=== PATIENT | female | born 1980 | race Asian ===

== ENCOUNTER 2017-05-20 15:35 | Emergency (ER) | END 2017-05-20 16:34 | disposition home or self-care (01) ==

== ENCOUNTER → 2017-10-16 | Outpatient (CLI) | END | disposition home or self-care (01) ==

== ENCOUNTER 2017-11-16 08:03 | Day surgery (SDC) | END 2017-11-16 11:27 | disposition home or self-care (01) ==

== ENCOUNTER 2019-03-02 15:18 | Emergency (ER) | payer BC ==
[~2019-03-02] VITALS: Ht 149.9 cm; Wt 57.5 kg
[~2019-03-02 15:18] MED LIST: ACET500C5 PO; ALBU18HF INHALATION
[2019-03-02 15:37] VITALS: BP 127/75; PULSE 89; RESP 19; Ht 149.9 cm; Wt 57.5 kg
== END 2019-03-02 18:47 | disposition home or self-care (01) ==
LOC: FTE 15:18
DX: O20.9 Hemorrhage in early pregnancy, unspecified (principal); Z3A.01 Less than 8 weeks gestation of pregnancy
CPT/HCPCS: 76801; 76817; 84702